=== PATIENT | female | born 2000 | race Hispanic/Latino ===

== ENCOUNTER 2025-02-21 15:43 | Emergency (ER) | payer SELFPAY ==
[~2025-02-21] VITALS: Ht 167.6 cm; Wt 55.8 kg
[2025-02-21 16:53] VITALS: PULSE 65; RESP 18; TEMP 98.5
[2025-02-21 17:27] LABS: BASOPHILS % 0.1 % (0.0-1.0); EOSINOPHILS % 0.1 % (0.0-6.0); LYMPHOCYTES % 6.5 % (18.0-39.1); MONOCYTES % 5.0 % (4.4-11.3); NEUTROPHILS % 88.0 % (38.7-80.0); RED CELL DISTRIBUTION WIDTH 11.5 % (11.7-14.4)
[2025-02-21 17:46] LABS: EST GLOMERULAR FILTRATION RATE 130.0 ML/MIN (>=60)
[2025-02-21] MEDS: KETOROLAC TROMETHAMINE 30 MG/ML VIAL IV STA (18:01)
[2025-02-21] MEDS: DICYCLOMINE HCL 20 MG/2 ML VIAL IM ONE (18:02)
[2025-02-21] MEDS: SODIUM CHLORIDE 0.9% 1000ML 1,000 ML IV STA (18:02)
[2025-02-21] MEDS ORDERED: IOPAMIDOL 370 MG/ML 100 ML INFUS..BTL INJ ONE (18:09)
[2025-02-21] MEDS ORDERED: ONDANSETRON ODT4 MG SL (20:10)
[2025-02-21] MEDS ORDERED: DICYCLOMINE HCL20 MG PO (20:10)
[2025-02-21 20:34] VITALS: BP 124/84; PULSE 74; RESP 18; TEMP 98.3; O2SAT 98
== END 2025-02-21 20:37 | disposition home or self-care (01) ==
LOC: ER 16:43
DX: R10.31 Right lower quadrant pain (principal); R16.0 Hepatomegaly, not elsewhere classified
CPT/HCPCS: 36415; 74177; 80048; 81025; 85025; 99284; J1885; J7030; Q9967